=== PATIENT | female | born 2005 | race Asian ===

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

== ENCOUNTER 2025-07-17 12:01 | Emergency (ER) | payer BC, MEDICAID, SELFPAY ==
--- OUTSIDE RECORDS SUMMARY | 2025-07-16 10:29 | XMS_ITS | Continuity of Care Document ---
Author Organization [facility] Address [address] [place] [id number] Phone Care Team Providers Care Epic Beacon Analyst Name Role Phone UDS, Nurse Unavailable Unavailable Allergies, Adverse Reactions, Alerts Substance Reaction Status Criticality No Known Allergies Active No Inform ation Medications Medication Instructions Dosage Effective Dates (start - stop) Status Comments Pepcid AC 20 mg tablet take 1 tablet by oral route every day 20 MG - Active bisacodyl 5 mg tablet,delayed release take 2 tablet by oral route every day 10 MG - Active Motegrity 2 mg tablet Take 1 Tablet (2 mg total) by mouth daily. - Active iron 325 mg (65 mg iron) tablet take 1 tablet by oral route every other day - Active Proventil HFA 90 mcg/actuation aerosol inhaler inhale 2 puff by inhalation route every 4 - 6 hours as needed for shortness of breath - Active Miralax 17 gram oral powder packet Use 17 g (~1 heaping tablespoon) dissolved in 120 to 240 mL (4 to 8 ounces) of beverage, once daily by oral route - Active Claritin 10 mg tablet take 1 tablet by oral route every day 10 MG - Active Flonase 50 mcg/actuation nasal spray,suspension spray 1 spray by intranasal route every day in each nostril - Active Misc Unknown Name NG Tube Nutritional Feedings - Active As ordered per GI Advance Directives Directive Yes / No Effective Date File Name No Information Encounters Encounter Description Practice Location Reason(s) For Visit Diagnoses Date Provider [facility], [address] [place] [address], [id number], [place] tel:[phone] [facility] No Information 5 UDS Nurse. [address] [place] [address], [address], [place]. tel: [phone] [facility], [address] [place] [address], [id number], [place] tel:[phone] [facility] skin issues (chief complaint) Skin lesion 5 Gorgecornell Louisara. , [place], [address], [place]. tel: [phone] [facility], [address] [place] [address], [id number], [place] tel:[phone] [facility] Follow Up of CT Scan (chief complaint) Abdominal bloatingEsophageal dysmotilityChronic constipation 5 Yani Martínez. [address] [place] [address], [address], [place]. tel: [phone] [facility], [address] [place] [address], [id number], [place] tel:[phone] [facility] labs (chief complaint) No Information 4 UDS Nurse. [address] [place] [address], [address], [place]. tel: [phone] [facility], [address] [place] [address], [id number], [place] tel:[phone] [facility] No Information 4 UDS Nurse. [address] [place] [address], [address], [place]. tel: [phone] [facility], [address] [place] [address], [id number], [place] tel:[phone] [facility] Stomach Pain (chief complaint) Abdominal bloatingEsophageal dysmotilityChronic constipation 4 Yani Martínez. [address] [place] [address], [address], [place]. tel: [phone] [facility], [address] [place] [address], [id number], [place] tel:[phone] [facility] No Information 4 UDS Nurse. [address] [place] [address], [address], [place]. tel: [phone] [facility], [address] [place] [address], [id number], [place] tel:[phone] [facility] Well Child 11-21 Years (chief complaint)heal th maintenance (chief complaint) Body mass index (BMI) 22.0-22.9, adultVaginal dischargeEsophageal dysmotility Jan- 0 4 Manuel Linda. [address] [place] [address], [address], [place]. tel: [phone] [facility], [address] [place] [address], [id number], [place] tel:[phone] [facility] No Information 4 UDS Nurse. [address] [place] [address], [address], . tel: [phone] [facility], [address] [place] [address], [id number], [place] tel:[phone] [facility] No Information 4 [employer]. [address] [place] [address], [address], [place]. tel: [phone] [facility], [address] [place] [address], [id number], [place] tel:[phone] [facility] No Information 3 UDS Nurse. [address] [place] [address], [address], . tel: [phone] [facility], [address] [place] [address], [id number], [place] tel:[phone] [facility] OCC Iron deficiency anemia, unspecified iron deficiency anemia type 3 Adilson Olivares. [address] [place] [address], [address], [place]. tel: [phone] [facility], [address] [place] [address], [id number], [place] tel:[phone] [facility] No Information 3 UDS Nurse. [address] [place] [address], [address], . tel: [phone] [facility], [address] [place] [address], [id number], tel:[phone] [facility] Labs (chief complaint) No Information 3 UDS Nurse. [address] [place], [address], [place]. tel: [phone] [facility], [address] [place] [address], [id number], [place] tel:[phone] [facility] No Information 3 Ehsan Nichole. [address] [place], [address], [place]. tel: [phone] [facility], [address] [place] [address], [id number], [place] tel:[phone] [facility] OCC Telehealth Visit (chief complaint)Foll ow Up of Anemia (chief complaint)Heal th Maintenance (chief complaint) Fatigue, unspecified typeChronic constipationVaginal yeast infectionLow ironHair lossStatus post breast reduction 3 Adilson Olivraes. [address] [place], [address], [place]. tel: [phone] [facility], [address] [place] [address], [id number], [place] tel:[phone] [facility] No Information 3 UDS Nurse. [address] [place], [address], . tel: [phone] [facility], [address] [place] [address], [id number], [place] tel:[phone] [facility] Prophy (chief complaint) Extraction of tooth needed 3 Jarad Tejada. [address], [place], [id number], [place]. tel: [phone] [facility], [address] [place] [address], [id number], [place] tel:[phone] [facility] Constipation (chief complaint)Heal th Maintenance (chief complaint)Vagi nal discharge (chief complaint) Generalized abdominal painAbdominal bloatingVaginal yeast infection Dec- 3 Adilson Olivares. [address] [place], [address], [place]. tel: [phone] [facility], [address] [place] [address], [id number], [place] tel:[phone] [facility] No Information Dec- 3 Adilson Olivares. [address] [place] [address], [address], [place]. tel: [phone] [facility], [address] [place] [address], [id number], [place] tel:[phone] [facility] Acute office visit (chief complaint)Heal th maintenance (chief complaint) Vaginal yeast infectionChronic constipation Oct- 3 Gambadeola Pradoica. [address] [place] [address], [address], [place]. tel: [phone] [facility], [address] [place] [address], [id number], [place] tel:[phone] [facility] Established office visit (chief complaint)Heal th maintenance (chief complaint) Lower abdominal pain 2 Dav Pradoica. [address] [place] [address], [address], [place]. tel: [phone] [facility], [address] [place] [address], [id number], [place] tel:[phone] [facility] Established office visit (chief complaint) Lower abdominal pain 2 Dav Pradoica. [address] [place] [address], [address], [place]. tel: [phone] [facility], [address] [place] [address], [id number], [place] tel:[phone] [facility] Well child (chief complaint)Well Child 11-21 Years (chief complaint) Encounter for routine child health examination without abnormal findingsBacterial vaginosisOther specified bacterial agents as the cause of diseases classified elsewhere 2 Rene Marianna. [address] [place] [address], [address], [place]. tel: [phone] [facility], [address] [place] [address], [id number], [place] tel:[phone] [facility] No Information 2 UDS Nurse. [address] [place] [address], [address], [place]. tel: [phone] [facility], [address] [place] [address], [id number], [place] tel:[phone] [facility] TB (chief complaint) History of anemia 2 UDS Nurse. [address] [place], [address], [place]. tel: [phone] [facility], [address] [place] [address], [id number], [place] tel:[phone] [facility] Encounter for screening for respiratory tuberculosis Jun- 2 UDS Nurse. [address] [place] [address], [address], . tel: [phone] [facility], [address] [place] [address], [id number], [place] tel:[phone] [facility] Testing for school (chief complaint)Heal Maintenance (chief complaint) Tuberculosis screening 2 Jett De Los Santos. [address] [place], [address], [place]. tel: [phone] [facility], [address] [place] [address], [id number], [place] tel:[phone] [facility] No Information 2 UDS Nurse. [address] [place] [address], [address], . tel:[phone] [facility], [address] [place] [address], [id number], [place] tel:[phone] [facility] Ear pain (chief complaint)Heal th Maintenance (chief complaint) Left acute otitis media 2 Adilson Olivares. [address] [place] [address], [address], [place]. tel: [phone] [facility], [address] [place] [address], [id number], [place] tel:[phone] [facility] hormone concerns (chief complaint)PLAN (chief complaint) Fatigue, unspecified typeWeight gainMuscle weaknessIndigestion Jan- 2 Adilson Olivares. [address] [place] [address], [address], [place]. tel:[phone] [facility], [address] [place] [address], [id number], [place] tel:[phone] [facility] Prophy (chief complaint) Encounter for dental exam and cleaning w abnormal findingsDental sealant statusEncounter for dental exam and cleaning w/o abnormal findingsRisk for dental caries, moderateDeposits [accretions] on teethEncounter for screening for depression 1 Jarad Tejada. [address], [place], [id number], [place]. tel:[phone] [facility], [address] [place] [address], [id number], [place] tel:[phone] [facility] No Information 1 UDS Nurse. [address] [place] [address], [address], . tel:[phone] [facility], [address] [place] [address], [id number], [place] tel:[phone] [facility] Prophy (chief complaint) Encounter for dental exam and cleaning w abnormal findingsEncounter for dental exam and cleaning w/o abnormal findingsRisk for dental caries, moderateDeposits [accretions] on teethDental sealant status 1 Jarad Tejada. [address] [place] [address], [id number], [place]. tel:[phone] [facility], [address] [place] [address], [id number], tel:[phone] [facility] No Information 1 UDS Nurse. [address] [place] [address], [address], [place]. tel: [phone] [facility], [address] [place] [address], [id number], [place] tel:[phone] [facility] Plan (chief complaint)asth ma (chief complaint) History of anemiaAsthma 1 Adilson Olivares. [address] [place] [address], [address], . tel: [phone] [facility], [address] [place] [address], [id number], [place] tel:[phone] [facility] Adjustment disorder, unspecified 1 Hosston Pricilla. [address], [place], [id number], [place]. tel: [phone] [facility], [address] [place] [address], [id number], [place] tel:[phone] [facility] Adjustment disorder, unspecified 1 [facility]. [address], [place], [id number], [place]. tel: [phone] [facility], [address] [place] [address], [id number], [place] tel:[phone] [facility] Large breasts 1 Lavell Castellanos. [address], [place], [id number], [place]. tel: [phone] [facility], [address] [place] [address], [id number], [place] tel:[phone] [facility] Follow up (chief complaint)PLAN (chief complaint) Nonscarring hair loss, unspecifiedLarge breasts 0 No Information [facility], [address] [place] [address], [id number], tel:[phone] [facility] No Information Jul- 0 No Information [facility], [address] [place] [address], [id number], tel:[phone] [facility] Encounter for dental exam and cleaning w abnormal findingsDeposits [accretions] on teethDental sealant statusRisk for dental caries, lowEncounter for dental exam and cleaning w/o abnormal findings Jun- 0 Frank Brooks. [address] [place] [address], [id number], [place]. tel: [phone] [facility], [address] [place] [address], [id number], tel:[phone] [facility] Dental sealant statusEncounter for dental exam and cleaning w abnormal findingsEncounter for screening for depression Jun- 0 Frank Brooks. [address] [place] [address], [id number], [place]. tel: [phone] [facility], [address] [place] [address], [id number], [place] tel:[phone] [facility] Well Child 11-21 Years (chief complaint)PLAN (chief complaint)Hair falling out (chief complaint) Encntr for routine child health exam w/o abnormal findingsNonscarring hair loss, unspecifiedAllergic rhinitisAsthma Apr-0 8 0 No Information [facility], [address] [place] [address], [id number], [place] tel:[phone] [facility] New Patient Exam (chief complaint) Encounter for dental exam and cleaning w abnormal findingsRisk for dental caries, low Jul-0 9- 9 No Information [facility], [address] [place] [address], [id number], [place] tel:[phone] [facility] Encounter for dental exam and cleaning w abnormal findings 0 5- 7 Keri Harden. [address] [place] [address], [address], [place]. tel: [phone] [facility], [address] [place] [address], [id number], [place] tel:[phone] [facility] left foot pain (chief complaint)vacc neeru (chief complaint) Other chronic painChronic pain of right ankleChronic pain in right foot Angel-0 6 7 Adilson Olivares. [address] [place] [address], [address], . tel: [phone] [facility], [address] [place] [address], [id number], [place] tel:[phone] [facility] Encounter for dental exam and cleaning w abnormal findings February-0 8-201 7 No Information [facility], [address] [place] [address], [id number], [place] tel:[phone] [facility] Encounter for dental exam and cleaning w abnormal findings Dec-3 1- 7 MARLEEN Mathew. [address] [place] [address], [id number], [place]. tel: [phone] [facility], [address] [place] [address], [id number], [place] tel:[phone] [facility] cough (chief complaint) Asthma exacerbationAcute right ankle pain Adilson Olivares. [address] [place], [address], . tel: [phone] [facility], [address] [place], [place], [id number], [place] tel:[phone] [facility] NPV (chief complaint) [facility] for routine child health examination without abnormal findingsAllergic rhinitis, unspecified allergic rhinitis trigger, unspecified rhinitis seasonalitySprain of other ligament of right ankle, initial encounter Adilson Olivares. [address] [place], [address], [place]. tel: [phone] [facility], [address], [place], [id number], [place] tel:[phone] [facility] No Information Adilson Olivares. [address] [place], [address], [place]. tel: [phone] Family History Family Member Type Diagnosis Age At Onset No Information Immunizations Vaccine Date Status Comments Influenza, injectable, MDCK, preservative free administered Source: New Immuniza tion Record Influenza, injectable, quadrivalent, MDCK, preservative and antibiotic free, 0.5 mL dosage, Flucelvax Quad administered Source: New Immuniza tion Record Trumenba administered Source: New Imm unization Record meningococcal polysaccharide (groups A, C, Y, W-135) TT conjugate administered Source: New Immuniza tion Record SARS-COV-2 (COVID-19) vaccin e, mRNA, spike protein, LNP, preservative free, 30 mcg/0.3mL dose (Pfizer) administered Source: New Immuniza tion Record Trumenba administered Source: New Imm unization Record Influenza, injectable, quadrivalent, MDCK, preservative and antibiotic free, 0.5 mL dosage, Flucelvax Quad administered Source: New Immuniza tion Record SARS-COV-2 (COVID-19) vaccin e, mRNA, spike protein, LNP, preservative free, 30 mcg/0.3mL dose (Pfizer) administered Source: New Immuniza tion Record SARS-COV-2 (COVID-19) vaccin e, mRNA, spike protein, LNP, preservative free, 30 mcg/0.3mL dose (Sentrinsic) administered Source: New Immuniza tion Record Influenza, injectable, quadrivalent, preservative free, 3 yrs or older administered Source: New Immuniz ation Record HPV (9-valent) administered Source: New I mmunization Record Influenza, seasonal, injectable administe red Source: Public Agency Influenza, seasonal, injectable administe red Source: Public Agency HPV (9-valent) administered Source: New I mmunization Record Influenza, injectable, quadrivalent, preservative free, split virus 3 years or older, Fluarix Quad administered Source: Ne w Immunization Record meningococcal MCV4P administered Source: New Immunization Record HPV (9-valent) administered Source: New I mmunization Record Tdap administered Source: New Imm unization Record Influenza, seasonal, injectable administe red Source: Public Agency Influenza, seasonal, injectable administe red Source: Public Agency hepatitis A vaccine, pediatric/adolescent dosage, 2 dose schedule administered Source: Public [facility] Influenza, seasonal, injectable administe red Note: Not Valid ; Source: Public Agency poliovirus vaccine, inactivated administe red Note: Not Valid ; Source: Public Agency Influenza, seasonal, injectable administe red Source: Public Agency poliovirus vaccine, inactivated administe red Source: Public Agency hepatitis B vaccine, pediatr ic or pediatric/adolescent dosage administered [facility]: [facility] MMR administered Note: Not Valid ; Source: Public Agency varicella virus vaccine administered Sour ce: Public Agency Hep A (ped/adol, 2 dose) administered Sophia rce: Public Agency tetanus and diphtheria toxoi ds, adsorbed, preservative free, for adult use (2 Lf of tetanus toxoid and 2 Lf of diphtheria toxoid) administered Source: Public Ageal y poliovirus vaccine, inactivated administe red Source: Public Agency measles, mumps and rubella virus vaccine administered Source: Public Ageal y hepatitis B vaccine, pediatr ic or pediatric/adolescent dosage administered Source: [facility] Agency tetanus and diphtheria toxoi ds, adsorbed, preservative free, for adult use (2 Lf of tetanus toxoid and 2 Lf of diphtheria toxoid) administered Source: Public Ageal y Varicella administered Source: Public Agency Polio, Inactive administered Source: Publ ic Agency MMR administered Source: Public Agency Hep B (ped/adol, 3 dose) administered Sophia rce: Public Agency Payers Payer name Insurance type Covered constitution party ID Authoriza tion(s) [employer] [facility] [id number] [employer] [facility] [id number] [employer] [facility] [id number] [employer] [facility] [id number] [employer] [facility] [id number] [employer] [facility] [id number] [facility] [id number] [facility] [id number] [facility] [id number] [facility] [id number] [employer] [facility] [id number] [employer] [facility] [id number] [employer] [facility] [id number] [employer] [facility] [id number] Social History Type Description Quantity Date Captured Comments Alcohol Use Details Unknown Caffeine Use Details Unknown Tobacco Use Status No Information Smoking Status No Information Sex Female Sexual Orientation Straight or heterosexual February Gender Identity Female Chief Complaint And Reason For Visit No Information Plan Of Treatment Date Type Action Status Goal HIV Screen. Due on due Goal Hepatitis C scre ening. Due on due Goal PRAPARE . Due on due Goal BMI Counseling. Due on due Goal SBIRT. Due on du e Goal Depression scree carlos eduardo. Due on due Goal AWV / CPE. Due on due Goal Fluoride varnish application. Due on due Goal BMI Counseling. Due on due Goal Hepatitis C scre ening. Due on due Goal SBIRT. Due on du e Goal HIV Screen. Due on due Goal Depression scree carlos eduardo. Due on due Goal PRAPARE . Due on due Goal AWV / CPE. Due on due Goal Tobacco screening. Due on due Goal PRAPARE . Due on due Goal Depression scree carlos eduardo. Due on due Goal Fluoride varnish application. Due on due Goal Hepatitis C scre ening. Due on due Goal BMI Counseling. Due on due Goal SBIRT. Due on du e Goal HIV Screen. Due on due Goal HIV Screen. Due on due Goal SBIRT. Due on du e Goal Hepatitis C scre ening. Due on due Goal Depression scree carlos eduardo. Due on due Goal Oral Risk Assess ment. Due on due Goal BMI Counseling. Due on due Goal Fluoride varnish application. Due on due Goal PRAPARE . Due on due Goal Oral Risk Assess ment. Due on due Goal BMI Counseling. Due on due Goal Fluoride varnish application. Due on due Goal SBIRT. Due on du e Goal Hepatitis C scre ening. Due on due Goal HIV Screen. Due on due Goal Depression scree carlos eduardo. Due on due Goal PRAPARE . Due on due Goal PRAPARE . Due on due Goal Depression scree carlos eduardo. Due on due Goal Oral Risk Assess ment. Due on due Goal SBIRT. Due on du e Goal Hepatitis C scre ening. Due on due Goal BMI Counseling. Due on due Goal HIV Screen. Due on due Goal Fluoride varnish application. Due on due Goal Fluoride varnish application. Due on due Goal PRAPARE . Due on due Goal Drug Abuse Scree carlos eduardo Test (DAST). Due on due Goal Depression scree carlos eduardo. Due on due Goal HIV Screen. Due on due Goal Oral Risk Assess ment. Due on due Goal Lifestyle education regardin g diet completed Referral Ordered: Dermatology (related to Skin lesion) ordered Referral Ordered: Referrals: Dermatology. Evaluate and treat ordered Referral Ordered: CT scan, abdomen, w/o contrast ordered Referral Ordered: Referrals: Gynecology. Evaluate and treat ordered Referral Ordered: Referrals: Plastic Surgery. Evaluate and treat Appointment date/timeframe: 07/27/2023 ordered Referral Ordered: Referrals: Oral Maxillofacial Surgery. Location: [facility]. Evaluate and treat ordered Referral Ordered: Referrals: Gastroenterology. Evaluate and treat ordered Referral Ordered: X-RAY EXAM ABDOMEN 1 VIEW(KUB) Left abdomen ordered Referral Ordered: Ultrasound abdomen, B-scan/real time, limited Left abdomen ordered Referral Ordered: [facility]. Consult Appointment date/timeframe: 11/30/2020 ordered Referral Ordered: Referrals: Surgery. Consult Appointment date/timeframe: 11/05/2020 ordered Referral Ordered: Pulmonary Function Test- Complete ordered Referral Ordered: Referrals: Podiatry. Evaluate and treat Appointment date/timeframe: 04/24/2017 ordered Referral Ordered: X-ray exam, ankle, complete, 3+ views ordered Referral Ordered: X-ray exam, foot, complete, 3+ views ordered Referral Ordered: X-ray exam, ankle, complete, 3+ views Right ordered Patient Education Kidney Stone i n Children: Care Instructions completed Patient Education Learning About Iron Sup plements for C~ completed Patient Education Iron Deficiency Anemia in Children: C~ completed Patient Education Iron-Rich Diet: Care In structions completed Future Order: Lab Order H. PYLOR I ANTIGEN, FECES (HPYF), Ordered on: Ordered Future Order: Lab Order CLOSTRID IUM DIFFICILE TOXIN GENE, STOOL (CDIFF), Ordered on: Ordered Future Order: Lab Order OVA AND PARASITES, FECES (O/P), Ordered on: Ordered Future Order: Lab Order CBC WITH DIFF (CBCD), Sent on: Sent Future Order: Lab Order IRON AND IRON BINDING CAPACITY (TIBC), Sent on: Sent Future Order: Lab Order VITAMIN B12 AND FOLATE (FOB12), Sent on: Sent Future Order: Lab Order FERRITIN (FERR), Sent on: Sent History Of Present Illness Encounter Date Complaint History Of Prese nt Illness skin issues Pt is here today for concerns of a little bump under her right lower eye lid. Pt states that it is itchy and sore and also thinks it may be spreading.First noticed small bump under right eye lid with intermittent swelling, itching and tenderness. No contacts or glasses. Does see car restorer regularly. Follow Up of CT Scan Father pres ent with frequent interruptions. labs Patient had labs drawn today hst. Stomach Pain The symptoms beg an 1 week ago. Patient is for some stomach pain and bloating that started about a week ago. She says that it worse at night. health maintenance Immunizations : UTDHIV/Hep C screening:Depression ScreeninTobacco Use Disorder: non smoking BMI/Health Promotion Plan PRAPARE: 02/06/24 Well Child 11-21 Years The paren t/guardian/patient has no concerns or questions, has no follow-up on previous concerns, reports there has been no interval history, verifies the patient has a dental home and states no special healthcare needs.She eats meals with family, has family member/adult to turn to for help and is able to make independent decisions. She has normal performance, has normal behavior, has normal attention and does homework regularly.She eats regular meals, does not drink sweetened liquids, has a normal amount of calcium intake and does not have concerns about body or appearance. She has interest in community activities, has less than 2 hours a day of screen time, has at least 1 hour a day of physical activity and has friends.She has peer relationships that are free of violence, uses safety belts/safety equipment and states her home is free of violence. She does not have thoughts about hurting herself, does not get depressed, anxious or irritable, does not have problems with sleep, displays self-confidence and has ways to cope with stress. Labs Patient had labs drawn today hst. Follow Up of Anemia Associated s ymptoms include dyspnea, fatigue and headache. Pertinent negatives include vomiting and weight loss. Additional information: Reports stopped taking iron 2 months ago. Still experiences thinning hair, fatigue, reports she has dark unde eye circles. Shortness of breath with walking/running stairs. Reports heartrate goes up significantly with minimal exertions. Telehealth Visit Today's visit i s conducted via telehealth protocol. Patient consents verbally to telehealth call and/or zoom conference. Connection was established and patients name and date of were verified. Connectivity was monitored and assured. Both patient and provider remained connected and able to communicate through the entire course of visit. Health Maintenance Immunizations :Bivalent booster Visual Acuity (ages 12 and 15): N/ADepression Screenin03/21/2023MI/Health Promotion Plan: N/A Prophy Constipation Associated sympt oms include abdominal distention, abdominal pain, nausea and vomiting. Additional information: Patient presents for follow up-chronic constipation. Patient reports there has been no progress with this. Patient states she has been drinking prune juice and this feels this has help more than the stool softener. Vaginal discharge The client has a history of yeast. Additional information: Patient reports ongoing vaginal odor, and discharge. Patient states she did a course of antibiotics back in October but still experiencing symptoms. Health Maintenance Immunizations : Johnathon #2: agrees, Menquadfi: agrees, Bivalent: declines Visual Acuity (ages 12 and 15): N/A Depression Screening: Completed 11/28/22BMI/Health Promotion Plan. Completed 11/28/22 Acute office visit Patient is in office to discuss stomach pain, patient refers bloating and every time she is going to eat it feels swollen, patient refers that it gets better after a bowel movement but this is difficult since patient is experiencing constipation. Patient refers that she went to the ED around New years time and was diagnosed with a UTI, patient would like to be retested to make sure it had been cleared.Patient refers that she is having symptoms of yeast infection described as white discharge that irritates her vulva when it makes contact with her underwear. Health maintenance PHQ completed Health maintenance Due for:Covid bivalent defers Established office visit Patient is in office for a 2 weeks follow up on lower abdominal pain.Patient states that the pain still comes and goes but it is faint and briefly. Established office visit Patient is in office for a 2 weeks follow up and to discuss results.She reports that for about a weeks she was having left lower abdominal pain that interfered with her daily activities but it stopped on its own yesterday. Well child Patient is in of [employer] for a well child check, she is interested in blood work to check her iron levels. Well Child 11-21 Years The parsunni t/guardian/patient has no concerns or questions, has no follow-up on previous concerns, reports there has been no interval history, verifies the patient has a dental home and states no special healthcare needs. There has been no interval change.She eats meals with family, has family member/adult to turn to for help and is able to make independent decisions. She has normal performance, has normal behavior, has normal attention and does homework regularly.She eats regular meals, does not drink sweetened liquids, has a normal amount of calcium intake and does not have concerns about body or appearance. She has friends, has at least 1 hour a day of physical activity, has less than 2 hours a day of screen time and has interest in community activities.She states her home is free of violence, uses safety belts/safety equipment and has peer relationships that are free of violence. She has ways to cope with stress, displays self-confidence, does not have problems with sleep, does not get depressed, anxious or irritable and does not have thoughts about hurting herself. TB TB placed on lef t lower arm [facility]1-ag diana, given verbal consent now from father/motherPf[employer]#3-agrees, given verbal consent now from father/motherTB/PPD placement-agrees, given verbal consent now from father/mother and patient understands that she needs to come back Sunday to have PPD read Testing for school Patient notes that she is going through [employer] program with school, she notes she was told she needs TB test prior to starting this program. [facility]- d ue, patient presents to visit without guardian/parent, she will schedule nurse visit to return to receive Ear pain Additional infor tamar: Patient notes that her left ear started to bother her last week and she notes achy. She denies any fluid leaking from her ear and notes the hearing in this ear seems fuzzy per patient. hormone concerns per patient, tatiana ricrado notes that she is gaining weight despite what she eats and feels really fully. she denies any issues with her menses at this time. PLAN Due for:PHQ2- co mpleted Prophy Prophy Plan Due for [employer] [facility] for HIV Screen, agrees asthma PLAN Flu- agrees Follow up Following up on hair loss, breathing test patient did and iron medication.Patient is here with her mother and expressed concern over breast size. She has had large breasts since the age of 10, they are causing severe upper back and rib pain for the last 3 years. She has persistent neck pain that causes difficulty with maintaining good posture. She exercises daily, she is a vegetarian. She has difficulty finding a bra that fits and her mother has to order them online and take in the band size. She feels self conscious and it is causing significant dysphoria. She is desperate for help, she and her mother are tearful in the office. Her goals are to try and reduce the weight and size of them, because she is in significant pain when she runs or jogs and finds it difficult to breathe, especially when laying down.Her waist is 27 inches and bust is 36 , BMI within normal limits. PLAN HPV- Well Child 11-21 Years The parsunni t/guardian/patient has no concerns or questions, has no follow-up on previous concerns, reports there has been no interval history, verifies the patient has a dental home and states no special healthcare needs. There has been no interval change.She eats meals with family, has family member/adult to turn to for help and is able to make independent decisions. She has normal performance, has normal behavior, has normal attention and does homework regularly.She eats regular meals, does not drink sweetened liquids and has a normal amount of calcium intake, but does have concerns about body or appearance. She has friends, has at least 1 hour a day of physical activity and has interest in community activities, but has more than 2 hours a day of screen time.She states her home is free of violence, uses safety belts/safety equipment and has peer relationships that are free of violence. She has ways to cope with stress, displays self-confidence, does not have problems with sleep, does not get depressed, anxious or irritable and does not have thoughts about hurting herself. Hair falling out Pt had hip deandre th hair and now its been a year since it started, losing hair non stop. Just under shoulders hair length. Mom says she had asthma as a child and does not need to use inhaler often, would like PFTs done to confirm, also had anemia as a child. She is a vegetarian. C/O runny nose, PND and occasional wheezing. Pt wants to get blood work done, chest is getting bigger non stop wants to check hormones,36 D now patient has had no change in height for a couple years. Mom does not have large chest. New Patient Exam left foot pain Location: right Foot. The pain is aching. Context: there is an injury. The pain is aggravated by movement, walking and standing. There are no relieving factors. Associated symptoms include decreased mobility, joint tenderness, limping, nocturnal awakening, nocturnal pain and weakness. Pertinent negatives include bruising, crepitus, difficulty initiating sleep, joint instability, locking, numbness, popping, spasms, swelling, tingling in the arms and tingling in the legs. Additional information: Patient is here today concerned about her ankle. She rolled her ankle about 6-7 months ago, and continues to have pain and difficulty bearing weight. Patient states that her ankle is constantly bothering her. vaccines 2nd HPV given. cough Onset: sudden. S everity: mild-moderate. The patient describes the cough as hacking. Context: allergies and known asthmatic. Symptoms are aggravated by allergens and lying down. Associated symptoms include cough, dyspnea, fatigue, post-nasal drainage, rhinorrhea and wheezing. Pertinent negatives include fever, hoarseness and sore throat. The patient has a history of allergies and asthma. Additional information: Patient is here today concerned that her asthma is worse due to her cold and cough. She started coughing over the weekend and wheezing. She reports being treated with an inhaler and amoxicillin in the past when this occurs. NPV Patient is here today with her mom to establish care. States that she is in fifth grade and is doing well in school. Mom and patient report concerns for chronic nasal stuffiness and cough. Concerned she may have allergies or asthma. Denies medications. Instructions Date Instruction Additional Infor tamar Lifestyle education regarding di et Related to Body mass index [BMI] 22.0-22.9, adult Referral to Plastic Surgery [facility] ed. Related to Status post breast reduction Labs ordered today, please call the office to schedule lab appt. Will follow up with results. Related to Fatigue, unspecified type Referral to Gynecology Placed. R elated to Vaginal yeast infection Boric Acid Supposito jennifer, place 1 vaginally at bedtime for 14 days.Follow up if symptoms persist. Related to Vaginal yeast infection Amoxicillin 500mg tw ice daily for 7 days. Take with food. May use OTC Tylenol or Ibuprofen for discomfort. Warm compress may be use for discomfort as well. Related to Left acute otitis media Dietary and exercise recommendations as discussed.Labs today, will call with results. Related to Fatigue, unspecified type Continue current med ications.Follow up as needed. Related to Asthma Continue Iron as dir ected.Labs ordered today, will call with results. Related to History of anemia -See patient education Related t o Nonscarring hair loss, unspecified -PFT orders placed, new prescription for inhaler sent Related to Asthma -Likely due to anemi a but will obtain labwork to confirm, as well as prolactin due to breast hypertrophy Related to Nonscarring hair loss, unspecified -Encouraged to have routine vaccinations and screenings, abstention from smoking -Avoid exposure to tobacco smoke and/or polluted air, allergy testing as indicated-Encouraged supportive care (hydration, rest, humidification) if needed-Consider nasal/sinus rinses with saline and distilled water-Maintain adequate sleep with head of bed elevated if needed -Counseled on appropriate use of OTC medications:-Consider use of Flonase intranasal -May use Claritin, Carolyn or Zyrtec with or without D -May use OTC cough suppressant such as dextromethorphan as directed-May use OTC decongestant like pseudoephedrine or phenylephrine as directed-May use OTC acetaminophen or ibuprofen as directed-Monitor exposure to allergens and symptoms in a symptom diary to track trends-If you have a diagnosis of asthma or reactive airway disease or have been prescribed an inhaler, monitor inhaler use in a symptom diary to track trends (Notify provider if using rescue inhaler >2days/week) Related to Allergic rhinitis Will obtain x-ray of right foot and ankle. Referral to Podiatry. Related to Chronic pain of right ankle Amoxicillin as direc gregorio. Albuterol inhaler as directed. Follow up if symptoms persist or worsen. Encouraged fluids. Related to Asthma exacerbation Release signed for previous PCP. Related to Encounter to establish care Flonase as directed. Follow up 1 month. Related to Allergic rhinitis, unspecified allergic rhinitis trigger, unspecified rhinitis seasonality Rest, elevate, ice f or 20 minutes at least 3 times daily, compression with angel luis wrap as tolerated. Follow up if symptoms do not gradually improve. Related to Sprain of other ligament of right ankle, initial encounter Normal well child ex am, follow up 1 year. Related to Encounter for routine child health examination without abnormal findings Assessments Type Assessment Date No Information
--- NOTE | ~2025-07-17 | CT_ITS ---
EXAMINATION: CT ABDOMEN AND PELVIS WITH CONTRAST CLINICAL INFORMATION: Diffuse abdominal pain COMPARISON: Abdomen ultrasound 08/29/2024 TECHNIQUE: Multidetector volumetric images were obtained from the superior aspect of the liver through the pubic symphysis following administration 85 mL of Omnipaque 350 intravenous contrast. Sagittal and coronal reformatted images were obtained on the technologist's workstation. Oral contrast: No This CT examination was performed using dose optimization techniques as appropriate, variously including the following: *Automated exposure control *Adjustment of mA and/or kV according to patient size (this includes techniques or standardized protocols for targeted exams where dose is matched to indication/reason for exam; i.e. extremities or head) *Use of iterative reconstruction technique FINDINGS: LUNG BASES: The visualized lung bases are unremarkable. LIVER, GALLBLADDER, AND BILIARY TREE: The liver is normal in size, shape, and attenuation. No focal hepatic lesion or biliary ductal dilatation is present. The gallbladder is unremarkable with no evidence of radiopaque gallstones, gallbladder wall thickening, or obvious pericholecystic inflammatory changes. PANCREAS: Unremarkable. SPLEEN: Unremarkable. ADRENAL GLANDS: Unremarkable. KIDNEYS AND URETERS: The kidneys are normal in size, shape, and attenuation. No hydronephrosis, hydroureter, or calculi seen. No perinephric stranding. BLADDER: Unremarkable. GASTROINTESTINAL TRACT: Fluid-filled small and large bowel is noted to the level of the rectum.. There is increased mesenteric vascularity. There is no pneumoperitoneum. ABDOMINAL WALL: No significant hernia is appreciated. LYMPH NODES: Normal. VASCULAR: Unremarkable. PELVIC VISCERA: There is a dominant right ovarian follicle. Uterus is unremarkable. Left ovary is unremarkable. OSSEOUS STRUCTURES: Unremarkable CT/CT abdomen pelvis w IV con IMPRESSION: Fluid-filled small and large bowel with prominent mesenteric vascularity is most consistent with gastroenteritis. Fleischner guidelines were followed. Electronically signed by: Ric Mendoza MD 07/17/2025 04:56 PM EDT
[2025-07-17 12:14] VITALS: BP 124/81; PULSE 78; RESP 16; TEMP 36.4; O2SAT 100; BMI 17.8
--- NOTE | 2025-07-17 12:15 | ED_ITS ---
HPI - General Adult General Chief complaint: General Medical Stated complaint: Pain Bloating Time Seen by Provider: 07/17/25 13:34 Source: patient, RN notes reviewed and old records reviewed Mode of arrival: ambulatory Limitations: no limitations History of Present Illness ED Provider: [facility] narrative: Patient is a 19-year-old female with history of esophageal dysmotility, has been doing nasogastric tube feeds and liquid diet only for the past 2 years, chronic constipation for which she takes bisacodyl daily presenting to the emergency department with complaint of generalized swelling, abdominal bloating, feeling tremulous for the past 5 days. States that she called her nurse who referred her to the ED. States that after she does her tube feeds she develops abdominal pain. Also complains of back and flank pain and decreased urination. States that [place] the [place] 2 [place] ago, had labs done there and was told that her BUN and potassium were elevated. Denies chest pain or palpitations. MD complaint: swelling, abdominal pain Related Data Previous Rx's ?Medication ?Instructions ?Recorded ondansetron 4 mg disintegrating 4 mg PO Q8H PRN nausea and 08/29/24 tablet vomiting #10 tabs dicyclomine 20 mg tablet 20 mg PO BID PRN abdominal p ain #7 07/17/25 tabs ondansetron 4 mg disintegrating 4 mg PO Q8H PRN nausea and 07/17/25 tablet vomiting #10 tabs Allergies Allergy/AdvReac Type Severity Reaction Status Date / Time No Known Allergies Allergy Verified 07/17/25 12:17 Review of Systems 2 Review of Systems: As per HPI Yes all other systems are reviewed and are negative Constitutional: Constitutional: Reports as per HPI [facility] Social History Social History Smoked in Last 30 Days: No Use of substances other than those prescribed or required for medical reasons: No Advance Directives: No Advance Directives Information Provided: No Physical Exam ED Vital Signs: Vital Signs - 24 hr 07/17/25 12:14 07/17/25 13:48 07/17/25 14:00 Temperature 97.5 F Pulse Rate 78 68 75 Respiratory Rate 16 16 16 Blood Pressure 124/81 123/60 116/67 Pulse Oximetry 100 99 99 Oxygen Delivery Method Room Air Room Air Room Air BMI result Body Mass Index 17.8 Vital signs have been reviewed and appear to be correct. Blood pressure normal. Heart rate normal. Respiratory rate normal. Temperature normal. Oxygen saturation normal. Const General: cooperative, healthy appearing, no acute distress and anxious Nutritional Appearance: thin Orientation/consciousness: oriented to person, oriented to place, oriented to time and patient oriented x3 Limitations: no limitations HENMT Head: Yes normocephalic and Yes atraumatic Ears: external ears normal General nose exam: Normal external nose present Face and sinus: Yes face symmetric Mouth: oropharynx normal and moist mucous membranes Throat: Yes uvula midline Eyes Pupils: Equal, round and reactive pupils present Neck Neck: Yes normal visual inspection and Yes supple Resp Effort & Inspection: normal respiratory effort and able to speak in complete sentences Auscultation: clear to auscultation bilaterally Cardio Rate: regular rate Rhythm: regular rhythm Heart sounds: S1 normal heart sound present and S2 normal heart sound present GI Palpation (GI): Soft to palpation and nontender Auscultation: normoactive bowel sounds General: Yes no CVA tenderness Back/Spine/Pelvis Back: no CVA tenderness Skin General skin exam: elasticity normal and turgor normal Neuro General: oriented to person, oriented to place, oriented to time, patient oriented x3, moves all extremities, no focal motor deficits and CN's II-XI intact bilaterally Cranial nerves: Yes Equal, round and reactive pupils present Cognition (Neuro): normal cognition Extrem General: Yes full ROM, Yes no pedal edema and Yes no calf tenderness Psych Mental Status: mental status grossly normal Affect: normal affect Thought process: Normal thought process present Course Course Course Narrative: RME, this is a rapid medical exam performed by Naveed Sharp please refer to primary provider for complete H&P- 19 year old female presents for evaluation of bloating all over. She endorses swelling in her legs and abdomen. Plan for labs and urinalysis Reevaluation(s) Reevaluation #1: Melvin Iverson PA-C have accepted care of the patient and signed out pending imaging and final disposition CT abdomen and pelvis: CT/CT abdomen pelvis w IV con IMPRESSION: Fluid-filled small and large bowel with prominent mesenteric vascularity is most consistent with gastroenteritis. Fleischner guidelines were followed. Medications Administered Discontinued Medications Generic Name Dose Route Start Last Admin Trade Name Freq PRN Reason Stop Dose Admin Sodium Chloride 1,000 mls @ 999 mls/hr 07/17/25 15:45 07/17/25 16:05 Ns IV 07/17/25 16:45 999 mls/hr .Q1H1M ANDRA Administration Iohexol 100 ml 07/17/25 16:39 07/17/25 16:39 Iohexol 350 Mg/Ml 100 Ml Infus..Btl IV 07/17/25 16:40 85 ml ONCE ONE Administration Medical Decision Making Medical Decision Making [facility] Narrative: Patient is a 19-year-old female with history of esophageal dysmotility, has been doing nasogastric tube feeds and liquid diet only for the past 2 years, chronic constipation for which she takes bisacodyl daily presenting to the emergency department with complaint of generalized swelling, abdominal bloating, feeling tremulous for the past 5 days. On exam patient is awake, A+Ox3, VS WNL, afebrile, normal neurological exam without focal deficits, physical exam findings as above. Given reported symptoms and physical exam findings, initial differential includes but is not limited to GLEN, electrolyte abnormality, GERD, PUD. Patient complaining of swelling, however, no edema noted on physical exam. Patient stating she is unable to remove her rings while slipping her rings on and off. Labs notable for no leukocytosis, mild anemia in a transfusion level, no significant electrolyte abnormalities, mildly elevated transaminases with normal T bili, unremarkable BNP, normal albumin, hCG negative, normal TSH. Upon repeat discussion with patient while requesting urine specimen, patient now stating that she has not had any urination for the past 5 days. States that she has been having bowel movements without urinating and has not made any urine for the past 5 days. Encouraged patient to attempt to provide urine specimen. Discussed lab results with patient, specificalyl Will administer IV fluids and obtain CT abdomen pelvis. Patient signed out to JOSEPH Walton pending CT results. Differential Diagnosis Differential Diagnoses: The differential diagnosis associated with the presentation includes as per [place] Admission/Observation Consideration of admission/observation: Escalation of care including admission/observation considered Patient would have been admitted to the hospital and transferred to appropriate facility had their clinical presentation warranted hospital admission. Lab Data [facility] Lab Attestation statement: I reviewed the patient's lab results. as per [place] 07/17/25 13:30 07/17/25 13:30 Labs: Lab Results 07/17/25 Range/Units 13:30 WBC 8.0 (4.8-10.8) X10*3/uL RBC 4.33 (4.20-5.50) X10*6/uL Hgb 11.5 L (12.0-16.0) g/dl Hct 35.2 L (37.0-47.0) % MCV 81.3 (80.0-98.0) fL MCH 26.6 L (27.0-33.0) pg MCHC 32.7 (31.0-35.0) g/dl RDW 15.5 (11.0-16.0) % Plt Count 319 (160-400) X10*3/uL MPV 9.5 (9.4-12.3) fL Immature Gran % (Auto) 0.2 (0.0-0.4) % Neut % (Auto) 59.6 (45-73) % Lymph % (Auto) 32.7 (20-40) % [place] % (Auto) 6.1 (2-11) % Eos % (Auto) 0.9 (0-4) % Baso % (Auto) 0.5 (0-2) % Lymph # (Auto) 2.6 (1.2-4.9) X10*3/uL [place] # (Auto) 0.5 (0.1-1.2) X10*3/uL Eos # (Auto) 0.1 (0.0-0.4) X10*3/uL Baso # (Auto) 0.0 (0.0-0.2) X10*3/uL Abs Immat Gran (auto) 0.02 (0.00-0.03) X10*3/uL Absolute Neuts (auto) 4.8 (2.0-8.3) x10*3/uL Absolute Nucleated RBC 0.000 (0.0-0.012) X10*3/uL Nucleated RBC % (auto) 0.0 (0.0-0.2) /100WBC Sodium 140 (135-145) mmol/L Potassium 3.5 (3.3-5.1) mmol/L Chloride 106 (96-108) mmol/L Carbon Dioxide 26 (22-29) mmol/L Anion Gap 12 (12-20) BUN 5 L (9-16) mg/dL Creatinine 0.53 (0.5-1.4) mg/dL Estim Creat Clear Calc 119.1 Estimated GFR > 60 Random Glucose 84 (60-115) mg/dL Calcium 9.7 D (8.4-10.2) mg/dL Total Bilirubin 0.4 (0.0-1.0) mg/dL AST 63 H (5-31) U/L ALT 52 H (0-31) U/L Alkaline Phosphatase 42 (39-117) U/L NT-Pro-B Natriuret Pep 70.8 (<300) pg/mL Total Protein 7.6 (6.5-8.0) g/dL Albumin 4.7 (3.5-5.0) g/dL Lipase 30 (8-78) U/L TSH 0.59 (0.32-4.0) uIU/mL Beta HCG, Quant < 2 mIU/mL External Record Review External record reviewed: Inpatient record, Office record and Outpatient record Discharge Plan Discharge Clinical Impression: Viral gastroenteritis Patient Disposition: Home, Self-Care Instructions: Gastroenteritis (ED) Additional Instructions: All of your screening labs were completely normal. The CT scan revealed you likely have viral gastroenteritis. Viral illnesses self-limiting, see home care instructions. Uses Zofran as needed for nausea, use the dicyclomine as needed for abdominal cramping and/or diarrhea. Follow up with your primary care provider as needed. Prescriptions: New dicyclomine 20 mg tablet 20 mg PO BID PRN (Reason: abdominal pain) Qty: 7 0RF ondansetron 4 mg tablet,disintegrating 4 mg PO Q8H PRN (Reason: nausea and vomiting) Qty: 10 0RF No Action ondansetron 4 mg tablet,disintegrating 4 mg PO Q8H PRN (Reason: nausea and vomiting) Qty: 10 0RF Stand Alone Forms: Work/School Release Print Language: Irish
--- NOTE | 2025-07-17 13:34 | ED.GENADULT ---
HPI - General Adult General Chief complaint: General Medical Stated complaint: Pain Bloating Time Seen by Provider: 07/17/25 13:34 Related Data Previous Rx's ?Medication ?Instructions ?Recorded ondansetron 4 mg disintegrating 4 mg PO Q8H PRN nausea and 08/29/24 tablet vomiting #10 tabs Allergies Allergy/AdvReac Type Severity Reaction Status Date / Time No Known Allergies Allergy Verified 07/17/25 12:17 Physical Exam ED Vital Signs: Vital Signs - 24 hr 07/17/25 12:14 Temperature 97.5 F Pulse Rate 78 Respiratory Rate 16 Blood Pressure 124/81 Pulse Oximetry 100 Oxygen Delivery Method Room Air BMI result Body Mass Index 17.8 Medical Decision Making Lab Data 07/17/25 13:30 07/17/25 13:30 Discharge Plan Discharge Prescriptions: No Action ondansetron 4 mg tablet,disintegrating 4 mg PO Q8H PRN (Reason: nausea and vomiting) Qty: 10 0RF Print Language: Luxembourgish
[2025-07-17 13:35] LABS: MANUAL DIFF FLAG NO
[2025-07-17 13:36] LABS: Hematocrit 35.2 % (37.0-47.0); Hemoglobin 11.5 g/dl (12.0-16.0); Imm Gran Abs Auto 0.02 X10*3/uL (0.00-0.03); Imm Gran Pct Auto 0.2 % (0.0-0.4); Lymphocytes Absolute Auto 2.6 X10*3/uL (1.2-4.9); Mean Corpuscular HGB Conc 32.7 g/dl (31.0-35.0); Mean Corpuscular Hemoglobin 26.6 pg (27.0-33.0); Mean Corpuscular Volume 81.3 fL (80.0-98.0); NRBC Abs Auto 0.000 X10*3/uL (0.0-0.012); NRBC Pct Auto 0.0 /100WBC (0.0-0.2); Platelet Count 319 X10*3/uL (160-400); Red Blood Count 4.33 X10*6/uL (4.20-5.50); White Blood Count 8.0 X10*3/uL (4.8-10.8)
--- NOTE | 2025-07-17 13:40 | PC.NURSE ---
While getting blood draw in triage, patient felt like she was going to pass out. Became diaphoretic, 'hot flashes', pale, trembling worse than previous evaluation by this RN. Spoke with Carol Jung RN (admission discharge rn). Moved to ED 14 by wheelchair.
[2025-07-17 13:48] VITALS: BP 123/60; PULSE 68; RESP 16; O2SAT 99
[2025-07-17 14:00] VITALS: BP 116/67; PULSE 75; RESP 16; O2SAT 99
[2025-07-17 14:03] LABS: Alanine Aminotransferase 52 U/L (0-31); Albumin Level 4.7 g/dL (3.5-5.0); Alkaline Phosphatase 42 U/L (39-117); Anion Gap 12 (12-20); Aspartate Amino Transferase 63 U/L (5-31); Blood Urea Nitrogen 5 mg/dL (9-16); Calcium 9.7 mg/dL (8.4-10.2); Carbon Dioxide 26 mmol/L (22-29); Chloride 106 mmol/L (96-108); Creatinine Clr Calc Pharmacy 119.1; Estimated Glomerular Filt Rate > 60; Lipase 30 U/L (8-78); Potassium 3.5 mmol/L (3.3-5.1); Sodium 140 mmol/L (135-145); Total Protein 7.6 g/dL (6.5-8.0)
[2025-07-17 14:04] LABS: NT Pro B Type Natriuretic Pept 70.8 pg/mL (<300)
--- OUTSIDE RECORDS SUMMARY | 2025-07-17 14:06 | XMS_ITS | Clinical Summary ---
Author Organization [facility] Address [address] [place] [address] Care Team Providers Care Lay Ups Assembler Name Role Phone Unavailable Primary Care Provider Unavailabl e Family History Medical History Relation Comments Diabetes Father Legacy Problem N jagruti: Diabetes mellitus; Cause of ?: N Relation Status Comments Father Social History Tobacco Use Types Packs/Day Years Used Date Smoking Tobacco: Unknown Alcohol Use Standard Drinks/Week Comments No 0 (1 standard drink = 0.6 oz pur e alcohol) Comments Unknown Sex and Gender Information Value Date Recorded Sex Assigned at Female 05/15/2025 7:45 PM EDT Legal Sex Female 7:45 PM EDT Gender Identity Not on file Sexual Orientation Not on file Last Filed Vital Signs Vital Sign Reading Time Taken Comments Blood Pressure - - Pulse - - Temperature - - Respiratory Rate - - Oxygen Saturation - - Inhaled Oxygen Concentration - - Weight 58.5 kg (129 lb) 12/03/2020 12:5 4 PM EST Height 165.1 cm (5' 5 ) 12/03/2020 12:5 4 PM EST ; Comment: Measured by [facility]. Body Mass Index 21.47 12/03/2020 12:54 PM EST Body Mass Index Percentile 66.05% 12/03 12:54 PM EST Growth Chart: CDC (Girls, 2- 20 Years) Plan of Treatment Not on file
--- OUTSIDE RECORDS SUMMARY | 2025-07-17 14:06 | XMS_ITS | Clinical Summary ---
Author Organization [facility] Address [address] [place] [address] Care Team Providers Care Manager Talent Acquisition Name Role Phone Elise De Anda NP Unavailable [phone] Marianna Ely SENIOR BOILER OPERATOR Primary Care Pro vider Nanette Gr NP Unavailable [phone] Kenia Verduzco MD Unavailable [phone] Allergies No known active allergies Medications albuterol HFA 108 (90 Base) MCG/ACT Aero Soln Inhalation 1-2 Puffs every 4 hours as needed for Wheezing 1 Inhaler 1 0 Active ferrous sulfate 325 (65 Fe) MG Tab TAKE 1 TABLET BY MOUTH DAILY 90 Tablet 4 Active polyethylene glycol (MiraLax) 17 GM/SCOOP PowderIndication s:Epigastric abdominal pain Take 25 gm by mouth daily. 765 gm 2 4 Active Additional Information Patient not taking.Reported on 01/15/2025 ergocalciferol (VITAMIN D2) 1.25 MG (57839 UT) Cap Take 50,000 Units by mouth every 7 days. 4 Active fluconazole (Diflucan) 150 MG Tab Take 1 Tablet (150 mg total) by mouth every 72 hours. 2 Tablet 4 Active Additional Information Patient not taking.Reported on 01/15/2025 metroNIDAZOLE (Flagyl) 250 MG Tab Take 1 Tablet (250 mg total) by mouth 2 (two) times a day. 60 Tablet 2 5 Active bisacodyl 5 MG Tablet Delayed ResponseIndicati ons:Constipation , unspecified constipation type TAKE 2 TABLETS BY MOUTH ONCE DAILY 30 Tablet 2 5 Active Active Problems Problem Noted Date Diagnosed Date Constipation, unspecified constipation type 01/2024 Esophageal dysmotility 10/18/2023 Dysphagia 05/22/2023 Epigastric abdominal pain 05/22/2023 Yeast vaginitis 04/26/2023 Foot pain, bilateral 07/21/2019 Assessment & Plan (07/21/2019 9:04 AM EDT): Patient with bilateral foot pain. X-rays have been ordered. Patient referred to podiatry. Hair loss 02/07/2019 Assessment & Plan (07/21/2019 9:04 AM EDT): Lab work that was done previously looks good. Patient will be referred to dermatology for further work-up. Assessment & Plan (02/07/2019 3:58 PM EDT): Lab work was ordered. Hammer toes of both feet 02/07/2019 Assessment & Plan (02/07/2019 3:58 PM EDT): Patient will be sent to podiatry for further evaluation and treatment. Arthralgia of ankle, right 04/24/2017 Posterior tibial tendon dysfunction, right 04/24 Resolved Problems Problem Noted Date Diagnosed Date Resolved Date Weight loss 05/22/2023 10/18/2023 Sprain of deltoid ligament o f right ankle, initial encounter 04/24/2017 09/10/2018 Right foot pain 04/17/2017 09/10/2018 Right ankle pain 04/17/2017 09/10/2018 Asthma (HHS/HCC) 04/17/2017 09/10/2018 Foot pain 09/10/2018 Overview (04/17/2017): right Encounters Date Type Department Care Team Description 07/02/2025 Telephone [facility] Gastroenterology [address] [address] Summer Gooden, DO Appointment Request 06/17/2025 Refill [facility] [address] [place] [address] Summer Gooden DO from Last 3 Months Immunizations Immunization Administration Dates Next Due HPV Vaccine 9-valent Confidential 04/03/2017, Hepatitis A Vaccine 0.5 ml 10/06/2013,06/19/2013 Hepatitis B Vaccine 10/06/2013,03/17/2013,2012 Influenza Vaccine Quadrivale nt 0.5mL IM PF Age 3Y+ Afluria ([id number]) 07/21/2019,09/10/2018 MMR Vaccine 03/17/2013,01/08/2013 Meningococcal MCV4P Vaccine 11/27/2016 Poliovirus Vaccine Inactivated (IPV) 08/2014,10/06/2013,03/17/2013,01/08 Td Vaccine 0.5ML IM 01/08/2013 Td Vaccine Age 7+ (MPHBL) 03/17/2013 Tdap Vaccine (7y+) 0.5 mL IM (Adacel, Boostrix)TDAP VACCINE AGE 7+ 11/27/2016 Varicella Vaccine 06/19/2013,01/08/2013 Family History Medical History Relation Name Comments No Known Problems Brother 1 No Known Problems Brother 2 No Known Problems Brother 3 No Known Problems Brother 4 Diabetes Father No Known Problems Mother Cancer Paternal Grandfather bladder No Known Problems Sister Breast Cancer Neg Hx Colon Cancer Neg Hx Ovarian Cancer Neg Hx Relation Name Status Comments Brother 1 Alive Brother 2 Alive Brother 3 Alive Brother 4 Alive Father Alive Mother Alive Paternal Grandfather Alive Sister Alive Social History Tobacco Use Types Packs/Day Years Used Date Smoking Tobacco: Never Passive Smoke Exposure: Never Smokeless Tobacco: Never Tobacco Cessation:Counseling Given: Not Answered Comments:Patient counseled on 09/10/18 Alcohol Use Standard Drinks/Week Comments No 0 (1 standard drink = 0.6 oz pur e alcohol) [facility] Utilities Answer Date Recorded In the past 12 months has th e electric, gas, oil, or water company threatened to shut off services in your home? No 10/27/2023 Humiliation, Afraid, Rape, and Kick questionnair e Answer Date Recorded Within the last year, have y ou been afraid of your partner or ex-partner? No 10/27/2023 Within the last year, have y ou been humiliated or emotionally abused in other ways by your partner or ex-partner? No Within the last year, have y ou been kicked, hit, slapped, or otherwise physically hurt by your partner or ex-partner? No 10/27/2023 Within the last year, have y ou been raped or forced to have any kind of sexual activity by your partner or ex-partner? No 10/27/2023 AUDIT-C Answer Date Recorded Q1: How often do you have a drink containing alcohol? Never 10/27/2023 Q2: How many drinks containi ng alcohol do you have on a typical day when you are drinking? Patient does not drink Q3: How often do you have si x or more drinks on one occasion? Never 10/27/2023 PHQ-2 Answer Date Recorded Patient Health Questionnaire-2 Score 0 01/15/2025 Hunger Vital Sign Answer Date Recorded Within the past 12 months, y ou worried that your food would run out before you got the money to buy more. Never true 10/27/20 Within the past 12 months, t he food you bought just didn't last and you didn't have money to get more. Never true 10/27/2023 PRAPARE - Transportation Answer Date Re corded In the past 12 months, has l ack of transportation kept you from medical appointments or from getting medications? No 09/30 In the past 12 months, has l ack of transportation kept you from meetings, work, or from getting things needed for daily living? No 10/27/2023 Housing Stability Vital Sign Answer Matt e Recorded In the last 12 months, was t here a time when you were not able to pay the mortgage or rent on time? No 10/27/2023 In the last 12 months, how many places have you lived? 1 10/27/2023 In the last 12 months, was t here a time when you did not have a steady place to sleep or slept in a halfway (including now)? No 10/27/2023 Substance Use Types Use/Week Comments No Comments No Sex and Gender Information Value Date Recorded Sex Assigned at Not on file Legal Sex Female 8:50 PM EDT Gender Identity Not on file Sexual Orientation Not on file Last Filed Vital Signs Vital Sign Reading Time Taken Comments Blood Pressure 112/71 01/15/2025 1:22 PM EDT Pulse 74 01/15/2025 1:22 PM EDT Temperature 36.5 C (97.7 F) 06/09/2024 7:07 AM EDT Respiratory Rate 16 06/09/2024 7:07 AM EDT Oxygen Saturation 99% 06/09/2024 9:30 AM EDT Inhaled Oxygen Concentration 99% 06/09/2024 9 :30 AM EDT Weight 54.2 kg (119 lb 8 oz) 01/15/2025 1:22 PM EDT Height 157.8 cm (5' 2.11 ) 01/15/2025 1:22 PM ED T Body Mass Index 21.78 01/15/2025 1:22 PM EDT Plan of Treatment Health Maintenance Due Date Last Done Comments Chlamydia Screening 2005 Pediatric Cardiac Risk Screening 2008 Fluoride Varnish 2011 HIV Screening with Documented Verbal Consent 2020 Hepatitis C Screening 2023 Well Child Visit Annual 08/09/2023 08/09/20, 08/09/2022, 05/05/2020, Additional history exists COVID-19 Vaccine ( season) 2025 06/28/2022, 04/13/2021, 03/23/2021 Influenza Vaccine (#1) 2025 , 12/20/2023, 06/12/2022, Additional history exists Depression Screening 01/15/2026 01/15/2025, 10/26/2023, 05/22/2023, Additional history exists DTaP/Tdap/Td Vaccine (4 - Td or Tdap) 11/27/2026 11/27/2016, 03/17/2013, 01/08/2013 TDAP/TD Vaccine 18+ 11/27/2026 11/27/2016, 03/17/2013, 01/08/2013 Pre-Diabetes/Diabetes Screening 06/09/2027 06/09/2024, 10/28/2023, 10/27/2023, Additional history exists Varicella Vaccines Completed 06/19/2013, 01/08/2013 MMR Vaccines Completed 10/03/2013, 02/27, 01/08/2013 Hepatitis B Vaccines Completed 10/06/2013, 10/06/2013, 03/17/2013, Additional history exists IPV Vaccines Completed 12/09/2013, 06/2013, 03/17/2013, Additional history exists Hepatitis A Vaccines Completed 05/05/2014, 10/06/2013, 10/06/2013, Additional history exists HPV Vaccines Completed 05/05/2020, 03/2017, 11/27/2016 Meningococcal ACWY Vaccine Completed 01/22/2023, Pneumococcal: Peds (0-5y) OR At-Risk Patient (6-49y) Aged Out No longer eligib le based on patient's age to complete this topic Rotavirus Vaccines Aged Out No longer eligible based on patient's age to complete this topic Procedures Procedure Name Priority Date/Time Associated Diagnosis Comments COMPREHENSIVE METABOLIC PANEL STAT 06/09/2024 8:33 AM EDT from Last 3 Months or Most Recently Relevant to Health Maintenance Results * (ABNORMAL) Comprehensive Metabolic Panel (06/09/2024 8:33 AM EDT) Sodium 141 135 - 145 mEq/L 06/09/2024 9:00 AM EDT [facility] Potassium 3.7 3.5 - 5.1 mEq/L 06/09/2024 9:00 AM EDT [facility] Chloride 105 96 - 108 mEq/L 06/09/2024 9:00 AM EDT [facility] Carbon Dioxide 21 21 - 30 mEq/L 06/09/2024 9:00 AM EDT [facility] Anion Gap 15 7 - 16 mEq/L 06/09/2024 9:00 AM EDT [facility] Blood Urea Nitrogen 7 6 - 20 mg/dL 06/09/2024 9:00 AM EDT [facility] Creatinine 0.56(L) 0.59 - 1.04 mg/dL 06/09/2024 9:00 AM EDT [facility] BUN Creatinine Ratio 12.5 06/09/2024 9:00 AM EDT [facility] Glucose 96 70 - 99 mg/dL 06/09/2024 9:00 AM EDT [facility] Comment:Per ADA guidelines t hese ranges are for fasting glucose only Protein 7.8 6.4 - 8.3 g/dL 06/09/2024 9:00 AM EDT [facility] Albumin 4.5 3.5 - 5.1 g/dL 06/09/2024 9:00 AM EDT [facility] Globulin 3.3 2.0 - 3.5 g/dL 06/09/2024 9:00 AM EDT [facility] Albumin/Globulin Ratio 1.4 06/09/2024 9:00 AM EDT [facility] Bilirubin 0.4 <=1.2 mg/dL 06/09/2024 9:00 AM EDT [facility] Calcium 9.9 8.6 - 10.0 mg/dL 06/09/2024 9:00 AM EDT [facility] Alkaline Phosphatase 43(L) 45 - 87 U/L 06/09/2024 9:00 AM EDT [facility] AST 19 8 - 43 U/L 06/09/2024 9:00 AM T [facility] ALT 12 7 - 45 U/L 06/09/2024 9:00 AM T [facility] EGFR (MDRD) >60 >60.0 mL/min/1.7 3m(2) 06/09/2024 9:00 AM EDT [facility] Comment:This test has multip le limitations. Please see [email or web address]. Blood VENOUS STRUCTURE / Unknown Venipuncture / Unknown 06/09/2024 8:33 AM EDT 06/09/2024 8:39 AM EDT us Boris Sinha MD CHEMISTRY ORDERABLES Final Resu lt [facility] [address] [place] [address] from Last 3 Months or Most Recently Relevant to Health Maintenance Insurance MEDICAID Advance Directives For more information, please contact: [phone] * Full Code (Latest Code Status on File) Date Activated Date Inactivated Comments 10/26/2023 5:25 PM 10/28/2023 7:06 PM Care Teams Manager Talent Acquisition Relationship Specialty Start Date End Date Marianna Ely FNP [address] [place] [address] PCP - General Nurse Practitioner 07/09/23 Elise De Anda NP [address] [place] [phone] Nurse Practitioner Nurse Practitioner 02/02/23 Nanette Gr NP [address] [place] [phone] Nurse Practitioner Nurse Practitioner 11/07/23 Kenia Verduzco MD [address] [place] [address] [address] [place] [address] Physician Obstetrics & Gynecology 05/16/24
--- OUTSIDE RECORDS SUMMARY | 2025-07-17 14:06 | XMS_ITS | Clinical Summary ---
Author Organization [facility] Address [address] [address] Phone Care Team Providers Care Fitness Consultant Name Role Phone Pcp, Unknown Primary Care Provider Unavailabl e Medications bisacodyl (DULCOLAX) 5 mg Tab tablet Take 5 mg by mouth daily. Active ergocalciferol (VITAMIN D2) 50,000 unit capsuleIndicatio ns:On tube feeding diet,Vomiting, unspecified vomiting type, unspecified whether nausea present,At high risk for inadequate nutritional intake,Generaliz ed abdominal pain Take 1 capsule (50,000 Units total) by mouth once a week. Take ONCE WEEKLY x 6 WEEKS 6 capsule 04/11/2024 Active Social History Tobacco Use Types Packs/Day Years Used Date Smoking Tobacco: Never Assessed Education Answer Date Recorded Are you interested in more education? Not on denny e 11/28/2023 Are you concerned about learning? Not on file 11/28/2023 No 11/28/2023 No 11/28/2023 Digital Access Answer Date Recorded No 11/28/2023 No 11/28/2023 Reliable internet access at home? Not on file 11/28/2023 Device with a working camera? Not on file Comments Unknown Sex and Gender Information Value Date Recorded Sex Assigned at Female 11/22/2023 10:53 AM EST Legal Sex Female 10:43 AM EST Gender Identity Female 11/22/2023 10:53 AM EST Sexual Orientation Straight 11/22/2023 10 :53 AM EST Last Filed Vital Signs Vital Sign Reading Time Taken Comments Blood Pressure 117/71 02/25/2024 8:42 AM EDT Pulse 81 02/25/2024 8:42 AM EDT Temperature - - Respiratory Rate - - Oxygen Saturation - - Inhaled Oxygen Concentration - - Weight 53.2 kg (117 lb 4.6 oz) 04/08/20 24 10:14 AM EDT home measure Height 157.5 cm (5' 2.01 ) 02/25/2024 8 :42 AM EDT Body Mass Index 21.45 02/25/2024 8:42 AM EDT Body Mass Index Percentile 49.85% 04/08 10:14 AM EDT Growth Chart: CDC (Girls, 2- 20 Years) Plan of Treatment Health Maintenance Due Date Last Done Comments MMR VACCINES (1 of 1 - Stand juan miguel series) 2006 DEVELOPMENTAL/BEHAVIORAL SCR EENING (PHQ, PSC, or SWYC) 2008 COMBINED DTaP,Tdap,Td (1 - Tdap) 2012 DEPRESSION SCREENING 2017 SMOKING Hx and SMOKELESS TOB ACCO SCREENING 2018 VARICELLA VACCINES (1 of 2 - 13+ 2-dose series) 2018 HPV VACCINES (1 - 3-dose series) 2020 CHLAMYDIA SCREENING 2021 MENINGOCOCCAL VACCINES (B) ( 1 of 2 - Standard) 2021 ADOLESCENT UNIVERSAL LIPID SCREENING 2022 HEPATITIS C SCREENING 2023 HIV ONE-TIME SCREENING (18-6 5 YEARS) 2023 HEPATITIS B VACCINES (1 of 3 - 19+ 3-dose series) 2024 BMI ASSESSMENT 04/08/2025 04/08/2024 INFLUENZA VACCINE (#1) 2025 COVID-19 VACCINE ( - 2023-2 5 season) 2025 HEPATITIS A VACCINES Aged Out No long er eligible based on patient's age to complete this topic HIB VACCINES Aged Out No longer eligi ble based on patient's age to complete this topic MENINGOCOCCAL VACCINES (ACWY) Aged Out No longer eligible based on patient's age to complete this topic PNEUMOCOCCAL VACCINES (0-49 years) Aged Out No longer eligible based on patient's age to complete this topic Medical Devices Not on file Insurance MEDICAID NON [place] MEDICAID [facility] MEDICAID NON [place] MEDICAID [facility] MEDICAID [facility] MEDICAID [facility] Care Teams Fitness Consultant Relationship Specialty Start Date End Date Pcp, Unknown PCP - General 11/22/23 Additional Source Comments The information contained in this document represents components of the legal health record. It is not the complete legal health record.[facility]
--- OUTSIDE RECORDS SUMMARY | 2025-07-17 14:06 | XMS_ITS | Encounter Summary ---
Author Organization [facility] Address [address] [place] [address] Care Team Providers Care Nephrology Nurse Name Role Phone Elise De Anda NP Primary Care Provider [phone] Lorin Mancia DO Primary Care Provider [phone] Venecia Kilpatrick COMPUTER EQUIPMENT INSTALLER-C Primary Care Provider Marianna Ely COMPUTER EQUIPMENT INSTALLER Primary Care Pro vider Marium Fang DO Primary Care Provider [phone] Elise De Anda MAGNETIC GRINDER OPERATOR Unavailable [phone] Marianna Ely COMPUTER EQUIPMENT INSTALLER Primary Care Pro vider Nanette Gr MAGNETIC GRINDER OPERATOR Unavailable [phone] Kenia Verduzco MD Unavailable [phone] Encounter Details Date Type Department Care Team (Late st Contact Info) Description 01/17/2017 Hospital Visit [facility] LEGACY CONVERSION Jorge A Junior DO [address] [place] [address] [place] [address] Social History Tobacco Use Types Packs/Day Years Used Date Smoking Tobacco: Never Assessed Comments Unknown Sex and Gender Information Value Date Recorded Sex Assigned at Not on file Legal Sex Female 8:50 PM EDT Gender Identity Not on file Sexual Orientation Not on file documented as of this encounter ED Notes * Jorge A Junior DO - 01/17/2017 2:56 AM EDT [facility] EMERGENCY ROOM REPORT NAME: LORENA SMITH UNIT #: [id number] : 2005 ROOM: SHED DATE OF SERVICE: 01/14/2017 TIME SEEN: 21:30 CHIEF COMPLAINT: Sore throat. HISTORY OF PRESENT ILLNESS: The patient is a very pleasant 11-year-old female who presents to THE emergency department. She has had a sore throat for several days as well as a slight cough. She thinks that she has had some fevers. Parents brought her in to be evaluated. REVIEW OF SYSTEMS: No nausea, vomiting or diarrhea. Otherwise asked and negative unless otherwise specified. PAST MEDICAL HISTORY: No chronic medical problems. PAST SURGICAL HISTORY: Denied. ALLERGIES AND MEDICATIONS: Please see nurse's med rec form, which has been reviewed by myself. SOCIAL HISTORY: Lives with the parents. IMMUNIZATIONS: Up-to-date. PHYSICAL EXAMINATION: VITAL SIGNS: Temperature 36.6, heart rate 102, respiratory rate 21, oxygen saturation 99% on room air. GENERAL: She is awake, alert, oriented, not in any distress. HEENT: Normocephalic, atraumatic. Conjunctivae show no pallor. Ears appear normal. Nose appears normal. Oropharynx shows moist mucous membranes. She does have tonsillar swelling with exudate bilaterally. NECK: Supple with mild anterior cervical lymphadenopathy bilaterally. LUNGS: Clear to auscultation without wheezes, rales or rhonchi. HEART: Regular rate and rhythm. SKIN: Warm and dry. EXTREMITIES: Warm and well perfused. NEUROLOGIC: Awake, alert, and oriented. PROGRESS NOTES: The patient was seen and examined in the emergency department. I suspect she has streptococcal pharyngitis. I have placed her on amoxicillin and I have advised her to follow up with the uniform cap operator, CLINICAL IMPRESSION: Streptococcal pharyngitis. PLAN: As above. Dictated by: Jorge A Junior DO 01/17/1702:56 gc 01/17/17:05 DICTATING PROVIDER: JORGE A JUNIOR DO <Electronically signed by JORGE A JUNIOR DO> 01/18/17 0731 CO-SIGN PROVIDER: DICTATING DATE/TIME: 01/17/17 0256 TRANSCRIBED BY: SYN TRANSCRIBED ON: 01/17/17 0705 cc: JORGE A JUNIOR DO [id number] documented in this encounter Plan of Treatment Not on file documented as of this encounter Visit Diagnoses Not on filedocumented in this encounter Additional Health Concerns Infection Onset Date Last Indicated Resolved Time R/O COVID-19 11/24/2020 11/24/2020 11/25/2020 2:08 AM EST R/O COVID-19 09/05/2021 09/05/2021 09/06/2021 12:5 4 AM EST R/O COVID-19 09/15/2021 09/15/2021 09/16/2021 4:01 AM EST COVID-19 09/15/2021 09/15/2021 10/15/2021 7:27 PM EST documented as of this encounter Care Teams Nephrology Nurse Relationship Specialty Start Date End Date Elise De Anda NP [address] [place] [phone] PCP - General Nurse Practitioner 04/06/17 09/09/18 Lorin Mancia DO [address] [place] [phone] PCP - General Family Medicine 09/10/18 07/28/20 Venecia Kilpatrick FNP-C [address] [place] [phone] PCP - General Nurse Practitioner 11/24/20 11/23/22 Marianna Ely FNP [address] [place] [phone] PCP - General Nurse Practitioner 11/24/22 02/01/23 Marium Fang DO [address] [place] [phone] PCP - General Family Medicine 02/02/23 07/08/23 Marianna Ely FNP [address] [place] [address] PCP - General Nurse Practitioner 07/09/23 Elise De Anda, UZMA [address] [place] [address] Nurse Practitioner Nurse Practitioner 02/02/23 Nanette Gr, UZMA [address] [place] [phone] Nurse Practitioner Nurse Practitioner 11/07/23 Kenia Verduzco MD [address] [place] [address] [place] [phone] Physician Obstetrics & Gynecology 05/16/24 documented as of this encounter
--- NOTE | 2025-07-17 14:07 | PC.NURSE ---
Patient is a 19 yo female who presents with c/o generalized abdominal pain and bloating. with assoc shakiness. Alert and oriented. Lungs clear bilat. Respirations even and non-labored. Abdomen soft, with positive bowel sounds. Patient has been feeding self via a feeding tube for the last 2 years. Patient also c/o chronic constipation of which she takes dulcolax. Positive pedal pulses with no edema.
--- OUTSIDE RECORDS SUMMARY | 2025-07-17 14:07 | XMS_ITS | Encounter Summary ---
Author Organization [facility] Address [address] [place] [address] Care Team Providers Care Orange Picking Supervisor Name Role Phone Elise De Anda GAMING SURVEILLANCE OBSERVER Unavailable [phone] Marianna Ely COST RECOVERY TECHNICIAN Primary Care Pro vider Nanette Gr NP Unavailable [phone] Kenia Verduzco MD Unavailable [phone] Reason for Visit * Reason Onset Date Comments Updates 06/17/2025 Medication Management 06/17/2025 Encounter Details Date Type Department Care Team (Late st Contact Info) Description 06/17/2025 Refill [facility] Gastroenterology [address] [phone] Summer Gooden DO [address] [place] [id number] Social History Tobacco Use Types Packs/Day Years Used Date Smoking Tobacco: Never Passive Smoke Exposure: Never Smokeless Tobacco: Never Comments:Patient counseled o n 09/10/18 Alcohol Use Standard Drinks/Week Comments No 0 (1 standard drink = 0.6 oz pur e alcohol) [facility] Utilities Answer Date Recorded In the [...] place to sleep or slept in a care home (including now)? No 10/27/2023 Substance Use Types Use/Week Comments No Comments No Sex and Gender Information Value Date Recorded Sex Assigned at Not on file Legal Sex Female 8:50 PM EDT Gender Identity Not on file Sexual Orientation Not on file documented as of this encounter Functional Status * Are you deaf or do you have serious difficulty hearing? Answer Date of Assessment Author Status No 09/02/2017 11:17 AM Katya Pedro, R N Active * Are you blind or do you have serious difficulty seeing, even when wearing glasses? Answer Date of Assessment Author Status No 09/02/2017 11:17 AM Katya Pedro, R N Active * Do you have serious difficulty walking or climbing stairs? (5 years old or older) Answer Date of Assessment Author Status No 09/02/2017 11:17 AM Katya Pedro, R N Active * Do you have difficulty dressing or bathing? (5 years old or older) Answer Date of Assessment Author Status No 09/02/2017 11:17 AM Katya Pedro, R N Active documented as of this encounter Mental Status * Because of a physical, mental, or emotional condition, do you have serious difficulty concentrating, remembering, or making decisions? (5 years old or older) Answer Entry Date Author Status No 09/02/2017 11:17 AM Katya Pedro, R N Active documented in this encounter Miscellaneous Notes * Telephone Encounter - Janae Hopper RN - 07/10/2025 5:00 PM EDT 19 y.o. with history of esophageal dysmotility requiring NG tube feeds. RN spoke with Lorena today for clinical update. Lorena had no improvement on flagyl but has had increase in regurgitation and new heartburn symptoms since flagyl trial. Also has lost weight (now 49kg) and having difficulty finding time to do NG feeds. Does not like Jevity so won't take by mouth. RN reviewed with Dr. Gooden and returned call to Lorena to advise of plan (see below). I left detailed message on Lorena's voicemail (not identified so left no patient identifying information) and sentMyChart. Plan: Dr. Gooden agrees with switch to Ensure or boost, wants to confirm what Lorena prefers and will sign orders and send to [facility] May remain off of flagyl Hold on PPI for heartburn until we can discuss at visit Admin team to call when October schedule opens to get Lorena an appt during school break * Telephone Encounter - Janae Hopper RN - 07/10/2025 11:23 AM EDT 19 y.o. with history of esophageal dysmotility requiring NG tube feeds. We received refill request for Lorena's bisacodyl, however she does not have future appointment scheduled. RN called today and was able to connect with Lorena. We could not find any openings in Dr. Gooden's schedule that correspond to Lorena's school vacations. However, Lorena will be free most of October, so we will call her once that schedule opens to make the appointment. RN obtained clinical update as well. Lorena did take the flagyl for 1 mo, however it did not cause any improvement. In fact, she startedto have worse reflux. Some vomiting after taking the pill, then also ongoing increase in regurgitation and developed heartburn. Symptoms are not very bothersome for Lorena, but they are new since metronidazole and have not resolved after stopping metronidazole. Has tried omeprazole in the past with no effect, however she did not have heartburn at that time. Lorena also notes she has lost weight (now 49kg - down from 54.2 kg 01/15/25). She has not had time to take her NG feeds routinely -- takes too long to run and her class schedule interferes. Gets Jevity feeds a few times per week. Otherwise, continues liquid diet po, or soft foods like cheese. 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 Can't get to pharmacy to get Ensure or Boost. Family has stopped using [facility] because they were getting too many extra supplies.Family is buying formula and NG tubes out of pocket. Jevity does not taste good, so she would not drink by mouth. Lorena would be interested in trialing an alternative formula that she could take by NG or by mouth(could mix with smoothie). Would be open to resuming care with [facility] as well. Call to [facility] to confirm if Lorena is still active. They confirm she was discharged last year per family request, would need new orders and demographics to resume care. Can ship to [facility] in [place]. Plan: RN to review with provider switch to Ensure Plus or Boost Plus so Lorena has flexiblity to take PO or NG. (Does not like taste of Jevity) May remain off of flagyl. Consider PPI for heartburn, but Lorena ok to hold on this until appt Resume care with [facility] so they can ship supplies to her at school (Lorena can arrange for them to hold on further shipments until she calls to request) Refill bisacodyl (to [facility] in [place] per [place] request) Admin team to call when October schedule opens to get Lorena an appt during school break * Telephone Encounter - Soni Tim MA - 06/17/2025 8:37 AM EDT Medication refill being requested: Requested Prescriptions Pending Prescriptions Disp Refills bisacodyl 5 MG Tablet Delayed Response [Pharmacy Med Name: BISACODYL 5MG EC TABLETS] 30 Tablet Sig: TAKE 2 TABLETS BY MOUTH ONCE DAILY Date of last refill: 06/12/2025 Date of Last Office Visit: 01/15/2025 Date of Next Office Visit: message sent to family Medication has been processed per practice protocol. I have reviewed and verified that the above information is correct. documented in this encounter Plan of Treatment Not on file documented as of this encounter Visit Diagnoses Diagnosis Constipation, unspecified constipation type documented in this encounter Additional Health Concerns Assessment Noted Time PHQ-9 Depression Total Score: 5 01/16/20 25 1:23 PM EDT A Depression follow-up plan has been documented for the patient 01/15/2025 1:23 PM EDT documented as of this encounter Care Teams Orange Picking Supervisor Relationship Specialty Start Date End Date Marianna Ely FNP [address] [place] [address] PCP - General Nurse Practitioner 07/09/23 Elise De Anda NP NPI: [id number] [place] [id number] Nurse Practitioner Nurse Practitioner 02/02/23 Nanette Gr NP [address] [place] [phone] Nurse Practitioner Nurse Practitioner 11/07/23 Kenia Verduzco MD [address] [place] [phone] Physician Obstetrics & Gynecology 05/16/24 documented as of this encounter
--- OUTSIDE RECORDS SUMMARY | 2025-07-17 14:07 | XMS_ITS | Encounter Summary ---
Author Organization [facility] Address [address] [place] [address] Care Team Providers Care Pelletising Extruder Operator Name Role Phone Elise De Anda SHELLACKER Unavailable [phone] Marianna Ely SURGICAL RN Primary Care Pro vider Nanette Gr SHELLACKER Unavailable [phone] Kenia Verduzco MD Unavailable [phone] Encounter Details Date Type Department Care Team (Late st Contact Info) Description 08/12/2024 Lab Requisition [facility] [address] [place] [phone] Tanya Lomeli APRN [address] [place], [place] [id number] Social History Tobacco Use Types Packs/Day Years Used Date Smoking Tobacco: Never Passive Smoke Exposure: Never Smokeless Tobacco: Never Comments:Patient counseled o n 09/10/18 Alcohol Use Standard Drinks/Week Comments No 0 (1 standard drink = 0.6 oz pur e alcohol) [facility] Utilities Answer Date Recorded In the past 12 months has e electric, gas, oil, or water [employer] threatened to shut off services in your [...] Date Recorded Patient Health Questionnaire-2 Score 0 10/27/2023 Hunger Vital Sign Answer Date Recorded Within the past 12 months, y ou worried that your food would run out before you got the money to buy more. Never true 10/27/20 23 Within the past 12 months, t he [...] place to sleep or slept in a detention (including now)? No 10/27/2023 Substance Use Types [...] Author Status No 09/02/2017 11:17 AM Katya Pedro R N Active * Are you blind or do you have serious difficulty seeing, even when wearing glasses? Answer Date of Assessment Author Status No 09/02/2017 11:17 AM Katya Pedro R N Active * Do you have serious difficulty walking or climbing stairs? (5 years old or older) Answer Date of Assessment Author Status No 09/02/2017 11:17 AM Katya Pedro R N Active * Do you have difficulty dressing or bathing? (5 years old or older) Answer Date of Assessment Author Status No 09/02/2017 11:17 AM Katya Pedro R N Active documented as of this encounter Mental Status * Because of a physical, mental, or emotional condition, do you have serious difficulty concentrating, remembering, or making decisions? (5 years old or older) Answer Entry Date Author Status No 09/02/2017 11:17 AM Katya Pedro R N Active documented in this encounter Plan of Treatment Not on file documented as of this encounter Procedures Procedure Name Priority Date/Time Associated Diagnosis Comments CELIAC DISEASE SEROLOGY PANEL Routine 08/12/2024 10:56 AM EDT Abdominal distension (gaseous) TISSUE TRANSGLUTAMINASE AB IGA Routine 08/12/2024 10:56 AM EDT Abdominal distension (gaseous) CBC W/O DIFFERENTIAL Routine 08/12/2024 10:56 AM EDT Abdominal distension (gaseous) Other constipation TSH Routine 08/12/2024 10:56 AM EDT Other constipation Abdominal distension (gaseous) MAGNESIUM Routine 08/12/2024 10:56 AM EDT Abdominal distension (gaseous) Other constipation IGA Routine 08/12/2024 10:56 AM EDT Abdominal distension (gaseous) documented in this encounter Results * IGA (08/12/2024 10:56 AM EDT) IgA 201 61 - 348 mg/dL 08/12/2024 11:41 PM EDT [facility] Blood VENOUS STRUCTURE / Unknown 08/12/2024 10:56 AM EDT 08/12/2024 11:06 PM EDT Tanya Yani COUNCILLOR [employer] IMMUNOLOGY ORDERABLES Final R esult Performing Organization Address [facility]/ZIP Co de Phone Number [place] [address] [place] [address] * TISSUE TRANSGLUTAMINASE AB IGA (08/12/2024 10:56 AM EDT) Tissue Transglutaminase Ab IgA <1.2 <4.0 U/mL 08/13/2024 2:03 PM EDT [facility] Comment: NEGATIVE: <4 U/mL WEAK POSITIVE: 4 - 10 U/mL MODERATE TO STRONG POSITIVE: >10 U/mL Blood VENOUS STRUCTURE / Unknown 08/12/2024 10:56 AM EDT 08/12/2024 11:06 PM EDT Tanya Lomeli COUNCILLOR [employer] IMMUNOLOGY ORDERABLES Final R esult Performing Organization Address [facility] Co de Phone Number [address] [place] [phone] * TSH (08/12/2024 10:56 AM EDT) Pathologist [facility] TSH 1.500 0.380 - 2.820 uIU/mL 08/13/2024 12:18 AM EDT [facility] Blood VENOUS STRUCTURE / Unknown 08/12/2024 10:56 AM EDT 08/12/2024 11:40 PM EDT Tanya Lomeli COUNCILLOR [employer] CHEMISTRY ORDERABLES Final Re sult Performing Organization Address [facility]/ZIP Co de Phone Number [place] [address] [place] [address] * MAGNESIUM (08/12/2024 10:56 AM EDT) Magnesium 2.2 1.7 - 2.2 mg/dL 08/13/2024 12:18 AM EDT [facility] Blood VENOUS STRUCTURE / Unknown 08/12/2024 10:56 AM EDT 08/12/2024 11:40 PM EDT Tanya Lomeli APRN CHEMISTRY ORDERABLES Final Re sult [facility] [address] [place] [address] * CBC W/O DIFFERENTIAL (08/12/2024 10:56 AM EDT) Pathologist [facility] Leukocytes 6.6 3.7 - 12.7 thou/uL 08/12/2024 10:08 PM EDT [facility] Erythrocytes 4.24 3.69 - 5.28 mil/uL 08/12/2024 10:08 PM EDT [facility] Hemoglobin 11.0 10.5 - 14.8 g/dL 08/12/2024 10:08 PM EDT [facility] Hematocrit 36.1 31.8 - 44.3 % 08/12/2024 10:08 PM EDT [facility] Mean Corpuscular Volume 85.1 73.3 - 96.9 fL 08/12/2024 10:08 PM EDT [facility] Mean Corpuscular Hemoglobin 25.9 21.9 - 32.6 pg 08/12/2024 10:08 PM EDT [facility] Mean Corpuscular Hemoglobin Conc 30.5 29.7 - 34.9 g/dL 08/12/2024 10:08 PM EDT [facility] Platelet Count 345 158 - 429 thou/uL 08/12/2024 10:08 PM EDT [facility] Mean Platelet Volume 10.6 9.1 - 12.9 fL 08/12/2024 10:08 PM EDT [facility] Erythrocyte Distribution Width SD 44.1 37.0 - 48.0 fL 08/12/2024 10:08 PM EDT [facility] Erythrocyte Distribution Width CV 14.3 11.5 - 17.6 % 08/12/2024 10:08 PM EDT [facility] Blood VENOUS STRUCTURE / Unknown 08/12/2024 10:56 AM EDT 08/12/2024 9:26 PM EDT us Tanya Lomeli COUNCILLOR [employer] HEMATOLOGY ORDERABLES Final R esult [facility] [address] [place] [address] documented in this encounter Visit Diagnoses Diagnosis Abdominal distension (gaseous) Flatulence, eructation, and gas pain Other constipation documented in this encounter Additional Health Concerns Assessment Noted Time PHQ-9 Depression Total Score: 3 10/27/20 23 6:00 AM EST documented as of this encounter Care Teams Pelletising Extruder Operator Relationship Specialty Start Date End Date Marianna Ely FNP [address] [place] [address] PCP - General Nurse Practitioner 07/09/23 Elise De Anda NP [address] [place] [address] Nurse Practitioner Nurse Practitioner 02/02/23 Nanette Gr NP [address] [place] [phone] Nurse Practitioner Nurse Practitioner 11/07/23 Kenia Verduzco MD [address] [place] [address] [place] [phone] Physician Obstetrics & Gynecology 05/16/24 documented as of this encounter
[2025-07-17] MEDS: iohexoL 350 MG/ML 100 ML INFUS..BTL IV (16:39)
[2025-07-17 17:33] VITALS: BP 104/56; PULSE 61; RESP 15; TEMP 36.9; O2SAT 99
[2025-07-17 17:57] VITALS: BP 104/56; PULSE 61; RESP 15; TEMP 36.9; O2SAT 99
== END 2025-07-17 17:58 | disposition home or self-care (01) ==
PROVIDERS: Physician Assistant; Emergency Provider Emergency Medicine
DX: K52.9 Noninfective gastroenteritis and colitis, unspecified (principal); R14.0 Abdominal distension (gaseous); R06.02 Shortness of breath; R10.2 Pelvic and perineal pain; Z79.899 Other long term (current) drug therapy
CPT/HCPCS: 36415; 74177; 80053; 83690; 83880; 84443; 84702; 85025; 96360; 99284; 99285; Q9967

== ENCOUNTER → 2025-07-17 15:45 | Outpatient (BNV) | payer BC, MEDICAID, SELFPAY | PROVIDERS: Emergency Provider Emergency Medicine; Visit Provider Radiology Diagnostic Radiology | DX: R10.84 Generalized abdominal pain (principal) | CPT/HCPCS: 74177 ==